=== PATIENT | male | born 1940 | race Caucasian/White ===

== ENCOUNTER 2018-10-07 19:30 | Emergency (ER) | payer OTHER, MEDICARE ==
[2018-10-07] MEDS ORDERED: Diphtheria,Pertussis(Acell),Tetanus Vaccine 0.5 ML Syringe IM ONE (19:49)
[2018-10-07] MEDS ORDERED: Lidocaine 1% 30 ML SDV INJECT ONE (19:58)
[2018-10-07 20:06] VITALS: BP 142/72; PULSE 63
[2018-10-07] MEDS ORDERED: Take Home: Cephalexin 500 MG Cap, 4 Cap Pack PO ONE (20:09)
--- NOTE | 2018-10-08 08:13 | EDM.PDOC ---
ED HPI GENERAL MEDICAL PROBLEM - General Chief Complaint: Laceration Stated Complaint: Laceration to left outer ear Time Seen by Provider: 10/07/18 19:40 Source of Information: Reports: Patient History Limitations: Reports: No Limitations - History of Present Illness INITIAL COMMENTS - FREE TEXT/NARRATIVE: Pt. states that he lacerated the helix of his L ear on a recently trimmed branch. He states that it happened while he was on his riding mower. Pt. states that the pointy, sharp and of the branch stuck in the antihelix which subsequently ripped posteriorly. Denies any injury other than what is isolated to the ear. No head or neck pain. Pt. is not sure when his tetanus was last updated. Onset: Today Onset Date: 10/08/18 Location: Reports: Face (L ear) Quality: Reports: Sharp left outer ear Pain Score (Numeric/FACES): 2 - Related Data Allergies Allergy/AdvReac Type Severity Reaction Status Date / Time No Known Allergies Allergy Verified 10/07/18 20:05 Home Meds: Home Meds Alprostadil [[place]] 1 dose ASDIRECTED 03/24/14 [History] Aspirin 325 mg PO DAILY 03/24/14 [History] Clobetasol [Temovate 0.05% Crm] 1 applic TOP ASDIRECTED 03/24/14 [History] Esomeprazole Magnesium [Nexium] 40 mg PO DAILY 03/24/14 [History] Metoprolol Tartrate [Lopressor] 100 mg PO QAM 03/24/14 [History] Multivitamin [Multivitamins] 1 tab PO DAILY 03/24/14 [History] Omeprazole [Prilosec] 40 mg PO DAILY 03/24/14 [History] Pravastatin [Pravachol] 20 tab PO DAILY 03/24/14 [History] Past Medical History Cardiovascular History: Reports: High Cholesterol, Hypertension Gastrointestinal History: Reports: GERD ED ROS GENERAL - Review of Systems Review Of Systems: See Below Constitutional: Reports: No Symptoms HEENT: Reports: Ear Pain Respiratory: Reports: No Symptoms Cardiovascular: Reports: No Symptoms Endocrine: Reports: No Symptoms GI/Abdominal: Reports: No Symptoms : Reports: No Symptoms Musculoskeletal: Reports: No Symptoms Skin: Reports: No Symptoms Neurological: Reports: No Symptoms Psychiatric: Reports: No Symptoms Hematologic/Lymphatic: Reports: No Symptoms Immunologic: Reports: No Symptoms ED EXAM, SKIN/RASH Exam: See Below Exam Limited By: No Limitations General Appearance: Alert, WD/WN, No Apparent Distress Ears: Other (approx. 3 cm, full thickness, stellate, irregular laceration through the mid posterior auricle of the L ear.) Nose: Normal Inspection, Normal Mucosa, No Blood Throat/Mouth: Normal Inspection, Normal Lips, Normal Teeth, Normal Gums, Normal Oropharynx, No Airway Compromise Head: Atraumatic, Normocephalic Neck: Normal Inspection, Supple, Non-Tender, Full Range of Motion Respiratory/Chest: No Respiratory Distress, Lungs Clear, Normal Breath Sounds, No Accessory Muscle Use, Chest Non-Tender Cardiovascular: Normal Peripheral Pulses, Regular Rate, Rhythm, No Edema, No Gallop, No JVD, No Murmur, No Rub ED SKIN PROCEDURES - Laceration/Wound Repair Left Posterior Ear Appearance: Stellate, Irregular, Moderately Contaminated Anesthetic Type: Local Local Anesthesia - Lidocaine (Xylocaine): 1% Plain Local Anesthetic Volume: 5cc Skin Prep: Chlorhexidine (Hibiciens), Saline Saline Irrigation (cc's): 1,000 Exploration/Debridement/Repair: Extensive Debridement, Foreign Material Removed , Wound Margins Revised, Multiple Flaps Aligned Closed with: Sutures Lac/Wound length In cm: 6 Suture Size: 5-0 Suture Type: Nylon Suture Size: 5-0 # of Sutures: 2 (2 sutures to reapproximate the cartilage) Repaired with: Vicryl Course - Vital Signs Last Recorded V/S: Last Vital Signs Temp 36.3 C 10/07/18 19:35 Pulse 63 10/07/18 19:35 Resp 16 10/07/18 19:35 BP 142/72 H 10/07/18 19:35 Pulse Ox - Orders/Labs/Meds Orders: Active Orders 24 hr Category Date Time Status Vaccines to be Administered [RC] PER UNIT ROUTINE Care 10/07/18 19:49 Active Meds: Medications Discontinued Medications Generic Name Dose Route Start Last Admin Trade Name Timbo PRN Reason Stop Dose Admin Cephalexin 1 packet 10/07/18 20:09 10/07/18 20:43 Take Home: Cephalexin 500 Mg, 4 Cap Pack PO 10/07/18 20:10 1 packet ONETIME ONE Administration Diphtheria/Tetanus/Acell Pertussis 0.5 ml 10/07/18 19:49 10/07/18 19:54 Adacel IM 10/07/18 19:50 0.5 ml .ONCE ONE Administration Lidocaine HCl 30 ml 10/07/18 19:58 10/07/18 20:10 Xylocaine-Mpf 1% INJECT 10/07/18 19:59 3 ml ONETIME ONE Administration Departure - Departure Time of Disposition: 21:15 Disposition: Home, Self-Care 01 Clinical Impression: Laceration of ear - Discharge Information Instructions: Laceration Care, Adult Referrals: Leonela Miguel, [Primary Care Provider] - Forms: ED Department Discharge Additional Instructions: Sutures out it 14 days Keflex 500mg 4 times daily for 10 days Tylenol and ibuprofen as needed for pain. Keep dry for 24 hours Return to ER if you have any redness, swelling, discharge from the area. - My Orders Last 24 Hours: My Active Orders 10/07/18 19:49 Vaccines to be Administered [RC] PER UNIT ROUTINE - Assessment/Plan Last 24 Hours: My Active Orders 10/07/18 19:49 Vaccines to be Administered [RC] PER UNIT ROUTINE Plan: Sutures out it 14 days Keflex 500mg 4 times daily for 10 days Tylenol and ibuprofen as needed for pain. Keep dry for 24 hours Return to ER if you have any redness, swelling, discharge from the area.
== END 2018-10-07 21:15 | disposition home or self-care (01) ==
LOC: VM.ED 19:30
DX: S01.312A Laceration without foreign body of left ear, initial encounter (principal); E78.00 Pure hypercholesterolemia, unspecified; I10 Essential (primary) hypertension; K21.9 Gastro-esophageal reflux disease without esophagitis; Z23 Encounter for immunization; Z79.899 Other long term (current) drug therapy; Z79.82 Long term (current) use of aspirin; W26.8XXA Contact with other sharp object(s), not elsewhere classified, initial encounter
CPT/HCPCS: 12053; 90471; 90715; 99282; A9270; J2001; 12014; 99283-GF

== ENCOUNTER 2022-06-10 06:58 | Day surgery (SDC) | payer MEDICARE, OTHER ==
[~2022-06-10 06:58] MED LIST: Lactated Ringers 1,000 ML IV SCH; Propofol 200 MG/20 ML SDV ONE; fentaNYL 100 MCG/2 ML SDV ONE
[2022-06-10] MEDS ORDERED: Sodium Chloride 0.9% 10 ML Syringe FLUSH PRN (07:00)
[2022-06-10] MEDS ORDERED: Lactated Ringers 1,000 ML IV SCH (07:00)
[2022-06-10 09:48] VITALS: BP 127/58; PULSE 53
== END 2022-06-10 11:00 | disposition home or self-care (01) ==
LOC: VM.SDS 06:58
PROVIDERS: ATTEND Student in an Organized Health Care Education/Training Program
DX: D12.3 Benign neoplasm of transverse colon (principal); D12.0 Benign neoplasm of cecum; D12.2 Benign neoplasm of ascending colon; I10 Essential (primary) hypertension; E03.9 Hypothyroidism, unspecified; E78.00 Pure hypercholesterolemia, unspecified; K21.9 Gastro-esophageal reflux disease without esophagitis; I48.91 Unspecified atrial fibrillation; Z86.010 Personal history of colon polyps; Z87.19 Personal history of other diseases of the digestive system; Z80.0 Family history of malignant neoplasm of digestive organs
CPT/HCPCS: 00811; 88305; J2704; J3010; J7120

== ENCOUNTER 2022-12-08 08:19 | Day surgery (SDC) | payer MEDICARE, OTHER ==
[2022-12-08] MEDS: Lactated Ringers 1,000 ML IV SCH (08:40)
[2022-12-08] MEDS ORDERED: Propofol 200 MG/20 ML SDV ONE (09:17)
[2022-12-08] MEDS ORDERED: fentaNYL 100 MCG/2 ML SDV ONE (09:17)
[2022-12-08 11:08] VITALS: PULSE 50
[2022-12-08 11:10] VITALS: BP 121/58
== END 2022-12-08 12:00 | disposition home or self-care (01) ==
LOC: VM.SDS 08:19
PROVIDERS: ATTEND Family Medicine
DX: Z12.11 Encounter for screening for malignant neoplasm of colon (principal); D12.0 Benign neoplasm of cecum; K57.30 Diverticulosis of large intestine without perforation or abscess without bleeding; K63.89 Other specified diseases of intestine; E78.5 Hyperlipidemia, unspecified; I48.91 Unspecified atrial fibrillation; G62.9 Polyneuropathy, unspecified; I10 Essential (primary) hypertension; E78.1 Pure hyperglyceridemia; E03.2 Hypothyroidism due to medicaments and other exogenous substances; T50.905A Adverse effect of unspecified drugs, medicaments and biological substances, initial encounter; E78.00 Pure hypercholesterolemia, unspecified; R73.03 Prediabetes; K21.9 Gastro-esophageal reflux disease without esophagitis; Z90.49 Acquired absence of other specified parts of digestive tract; Z85.46 Personal history of malignant neoplasm of prostate; Z79.82 Long term (current) use of aspirin; Z79.899 Other long term (current) drug therapy
CPT/HCPCS: 00811; 88305; J2704; J3010; J7120